=== PATIENT | male | born 1985 | race Caucasian/White ===

== ENCOUNTER 2019-09-01 10:34 | Inpatient (IN) | payer SELFPAY ==
[2019-09-01] MEDS ORDERED: Ondansetron 4 MG/2 ML SDV IVPUSH ONE (11:07)
--- NOTE | 2019-09-01 11:12 | EDM.PDOC ---
ED HPI GENERAL MEDICAL PROBLEM - General Chief Complaint: Abdominal Pain Stated Complaint: ABDOMINAL PAIN Time Seen by Provider: 09/01/19 11:00 Source of Information: Reports: Patient History Limitations: Reports: No Limitations - History of Present Illness INITIAL COMMENTS - FREE TEXT/NARRATIVE: Patient is a 33-year-old male who was sent from the [facility] for a possible bowel obstruction. He presents with complaints of intermittent abdominal pain, distention, decreased appetite, nausea, and diarrhea. Symptoms started 3 days ago when he came down with what he feels a viral gastroenteritis that he and the other members of his house had. He did have nausea, vomiting and diarrhea at this time. He states that since that time he has continued to have watery diarrhea. His abdomen has been becoming progressively more distended.. He has not been vomiting since 3 days ago however his appetite is drastically decreased. He is still passing flatus. He denies any chronic health problems or abdominal surgeries in the past. lab work sent from [facility] includes a CBC and a CMP. His WBCs were mildly elevated at 11.9. The lab work was otherwise unremarkable. [facility] did also push abdominal x-ray images which did have positive air-fluid levels. Abdomen Pain Score (Numeric/FACES): 7 - Related Data Allergies Allergy/AdvReac Type Severity Reaction Status Date / Time Penicillins Allergy Cannot Verified 09/01/19 10:44 Remember Home Meds: Home Meds . [No Known Home Meds] 09/01/19 [History] Past Medical History - Past Surgical History HEENT Surgical History: Reports: Adenoidectomy, Tonsillectomy Social & Family History - Tobacco Use Smoking Status *Q: Never Smoker Second Hand Smoke Exposure: No - Caffeine Use Caffeine Use: Reports: Soda - Recreational Drug Use Recreational Drug Use: No ED ROS GENERAL - Review of Systems Review Of Systems: See Below Constitutional: Reports: Decreased Appetite. Denies: Fever, Chills HEENT: Reports: No Symptoms Respiratory: Reports: No Symptoms Cardiovascular: Reports: No Symptoms Endocrine: Reports: No Symptoms GI/Abdominal: Reports: Abdominal Pain (intermittent, crampy), Diarrhea, Decreased Appetite, Distension, Nausea. Denies: Black Stool : Reports: No Symptoms Musculoskeletal: Reports: No Symptoms Skin: Reports: No Symptoms Neurological: Reports: No Symptoms Psychiatric: Reports: No Symptoms Hematologic/Lymphatic: Reports: No Symptoms Immunologic: Reports: No Symptoms ED EXAM, GI/ABD - Physical Exam Exam: See Below Exam Limited By: Altered Mental Status General Appearance: Alert, WD/WN, No Apparent Distress Respiratory/Chest: No Respiratory Distress, Lungs Clear, Normal Breath Sounds, No Accessory Muscle Use, Chest Non-Tender Cardiovascular: Normal Peripheral Pulses, Regular Rate, Rhythm, No Edema, No Murmur GI/Abdominal Exam: Non-Tender, No Mass, Distended, Abnormal Bowel Sounds (high, pitched hyperactive to the LLQ and LUQ. Hypoactive to the RUQ and RLQ.) Neurological: Alert, Oriented, Normal Cognition Psychiatric: Normal Affect, Normal Mood Skin Exam: Warm, Dry, Intact, Normal Color, No Rash Course - Vital Signs Last Recorded V/S: Last Vital Signs Temp 98.6 F 09/01/19 10:45 Pulse 90 09/01/19 10:45 Resp 13 09/01/19 10:45 BP 153/100 H 09/01/19 10:45 Pulse Ox 98 09/01/19 10:45 - Orders/Labs/Meds Orders: Active Orders 24 hr Category Date Time Status Sodium Chloride 0.9% [Normal Saline] 1,000 ml Med 09/01/19 11:15 Active IV ASDIRECTED Sodium Chloride 0.9% [Normal Saline] 1,000 ml Med 09/01/19 14:00 Active IV ASDIRECTED Sodium Chloride 0.9% [Saline Flush] Med 09/01/19 11:15 Active 10 ml FLUSH ONETIME PRN Medication Orders Sodium Chloride (Normal Saline) 1,000 mls @ 999 mls/hr IV ASDIRECTED ANA Last Admin: 09/01/19 11:18 Dose: 999 mls/hr Sodium Chloride (Normal Saline) 1,000 mls @ 150 mls/hr IV ASDIRECTED ANA Last Admin: 09/01/19 14:00 Dose: 150 mls/hr Sodium Chloride (Saline Flush) 10 ml FLUSH ONETIME PRN PRN Reason: IV FLUSH Last Admin: 09/01/19 12:30 Dose: 10 ml Admin: 09/01/19 11:21 Dose: 10 ml Meds: Medications Generic Name Dose Route Start Last Admin Trade Name Freq PRN Reason Stop Dose Admin Sodium Chloride 1,000 mls @ 999 mls/hr 09/01/19 11:15 09/01/19 11:18 Normal Saline IV 999 mls/hr ASDIRECTED ANA Administration Sodium Chloride 1,000 mls @ 150 mls/hr 09/01/19 14:00 09/01/19 14:00 Normal Saline IV 150 mls/hr ASDIRECTED ANA Administration Sodium Chloride 10 ml 09/01/19 11:15 09/01/19 12:30 Saline Flush FLUSH 10 ml ONETIME PRN Administration IV FLUSH Discontinued Medications Generic Name Dose Route Start Last Admin Trade Name Rebekah PRN Reason Stop Dose Admin Diatrizoate Meglum/Diatrizoate Sod 120 ml 09/01/19 11:15 09/01/19 12:30 Gastrografin 37% PO 09/01/19 11:16 90 ml ONETIME ONE Administration Iopamidol 100 ml 09/01/19 11:15 09/01/19 12:30 Isovue-300 (61%) IVPUSH 09/01/19 11:16 100 ml ONETIME ONE Administration Ondansetron HCl 4 mg 09/01/19 11:07 09/01/19 11:14 Zofran IVPUSH 09/01/19 11:08 4 mg ONETIME ONE Administration - Re-Assessments/Exams Free Text/Narrative Re-Assessment/Exam: on exam patient's abdomen is quite distended and firm. He does have high- pitched hyperactive bowel sounds in the right upper and lower quadrants, as well as hypoactive bowel sounds in the left upper and lower quadrants. He has still been passing watery stools for the last couple days and is passing flatus today. I have ordered an abdomen CT with contrast, as well as Zofran IV and a 1 L bolus of normal saline. He denies any pain at this time. He states that it "comes and goes intermittently. Suspicion is high for a small bowel obstruction versus ileus. 09/01/19 [id number] Report of the abdomen pelvis CT is as follows: 1. Dilated small bowel loops containing air and fluid. Distal ileal loops are normal in size. Findings are suspicious for a small bowel obstruction. Etiology is not seen on this exam. 2. Fatty infiltration within the liver. 3. Slightly prominent fluid and air within the right colon and transverse colon possibly due to mild colonic ileus. I did attempt to call the on-call surgeon Dr. Regalado, however there was no answer and a voicemail was left. Patient was updated on these results and a possibility of hospital admission. He continued to deny the need for any pain medications. He is currently resting comfortably. 09/01/19 14:24 I was able to get a hold of Dr. Regalado at [facility]. Based on the report given she does not feel there is an emergent situation requiring surgery at this time. She requests that we have the hospitalist admit and consult her if needed. I did call and talk to Dr. Rodgers. He did except the patient for admission as an inpatient for small bowel obstruction. He requests that the IV fluids be continued and that he be maintained nothing by mouth. Departure - Departure Time of Disposition: 14:25 Disposition: Admitted As Inpatient 65 Condition: Fair Clinical Impression: Small bowel obstruction - Discharge Information *PRESCRIPTION DRUG MONITORING PROGRAM REVIEWED*: No *COPY OF PRESCRIPTION DRUG MONITORING REPORT IN PATIENT [facility]: No - My Orders Last 24 Hours: My Active Orders 09/01/19 11:15 Sodium Chloride 0.9% [Normal Saline] 1,000 ml IV ASDIRECTED Sodium Chloride 0.9% [Saline Flush] 10 ml FLUSH ONETIME PRN 09/01/19 14:00 Sodium Chloride 0.9% [Normal Saline] 1,000 ml IV ASDIRECTED - Assessment/Plan Last 24 Hours: My Active Orders 09/01/19 11:15 Sodium Chloride 0.9% [Normal Saline] 1,000 ml IV ASDIRECTED Sodium Chloride 0.9% [Saline Flush] 10 ml FLUSH ONETIME PRN 09/01/19 14:00 Sodium Chloride 0.9% [Normal Saline] 1,000 ml IV ASDIRECTED
[2019-09-01] MEDS ORDERED: Sodium Chloride 0.9% 1,000 ML IV SCH (11:15)
[2019-09-01] MEDS ORDERED: Iopamidol 612 MG/ML 100 ML Bottle IVPUSH ONE (11:15)
[2019-09-01] MEDS ORDERED: Diatrizoate Meglumine/Diatrizoate Sodium 37% 120 ML Bottle PO ONE (11:15)
[2019-09-01] MEDS: Sodium Chloride 0.9% 10 ML Syringe FLUSH PRN ×2 (11:21→12:30)
--- NOTE | 2019-09-01 13:57 | CT ---
CT abdomen and pelvis Technique: Multiple axial sections were obtained from above the domes of the diaphragm inferiorly to the pubic symphysis. Intravenous contrast and oral contrast has been given. Comparison: Previous CT abdomen and pelvis study of 06/15/12. Findings: Dilated air and fluid-filled small bowel are noted. Distal small bowel ileum shows no dilatation. There is also mild gaseous dilatation of a portion of the transverse and right colon which is likely due to slight ileus. Appendix is seen and normal in size. Visualized lung bases show nothing acute. Fatty infiltration is noted within the liver. No focal abnormality is seen. Spleen appears within normal limits. Adrenal glands show no nodule. Kidneys show symmetric contrast enhancement without hydronephrosis or mass. Pancreas shows no discrete abnormality. Aorta shows no aneurysm. No retroperitoneal adenopathy or mesenteric abnormalities are seen. No pelvic mass or adenopathy is seen. No free fluid or inflammatory change is appreciated. Impression: 1. Dilated small bowel loops containing air and fluid. Distal ileal loops are normal in size. Findings are suspicious for small bowel obstruction. Etiology is not seen on this exam. 2. Fatty infiltration within the liver. 3. Slightly prominent fluid and air within the right colon and transverse colon possibly due to mild colonic ileus. Diagnostic code #3
[2019-09-01] MEDS: Sodium Chloride 0.9% 1,000 ML IV SCH ×2 (14:00→21:45)
--- NOTE | 2019-09-01 16:09 | PCM.HP.2 ---
H&P History of Present Illness - General Date of Service: 09/01/19 Admit Problem/Dx: Admission Diagnosis/Problem Admission Diagnosis/Problem Small bowel obstruction - History of Present Illness Initial Comments - Free Text/Narative: 33-year-old male who presents to the emergency room with 3-day history of normal pain. 3 days prior to admission patient states he woke up vomiting and had diarrhea. This was a similar illness that went through the family. Yesterday as he was driving in his truck he noticed that the bumps in the road hurt worse than normal. On day of admission pain became more severe and he presented to the emergency room. Patient has had multiple bowel movements including one when he was admitted to the medical surgical floor. Patient denies any blood, hematochezia, melena, hematemesis. Complains of liquid stools and flatus. Also complains of bloating. In the emergency room a CT scan was performed. Impression: 1. Dilated small bowel loops containing air and fluid. Distal ileal loops are normal in size. Findings are suspicious for small bowel obstruction. Etiology is not seen on this exam. 2. Fatty infiltration within the liver. 3. Slightly prominent fluid and air within the right colon and transverse colon possibly due to mild colonic ileus. Patient was given IV fluids, made n.p.o., and transferred to the medical surgical floor. Abdomen Pain Score (Numeric/FACES): 7 - Related Data Allergies/Adverse Reactions: Allergies Allergy/AdvReac Type Severity Reaction Status Date / Time Penicillins Allergy Cannot Verified 09/01/19 15:45 Remember Home Medications: Home Meds . [No Known Home Meds] 09/01/19 [History] Past Medical History Gastrointestinal History: Reports: Other (See Below) Other Gastrointestinal History: bacterial infection years ago Neurological History: Reports: Head Trauma Other Neuro History: "split head open when 6 from riding a horse" Endocrine/Metabolic History: Reports: Obesity/BMI 30+ - Past Surgical History HEENT Surgical History: Reports: Adenoidectomy, Tonsillectomy Musculoskeletal Surgical History: Reports: Other (See Below) Social & Family History - Tobacco Use Smoking Status *Q: Never Smoker Second Hand Smoke Exposure: No - Caffeine Use Caffeine Use: Reports: Soda - Recreational Drug Use Recreational Drug Use: No H&P Review of Systems - Review of Systems: Review Of Systems: Comprehensive ROS is negative, except as noted in HPI. Exam - Exam Exam: See Below - Vital Signs Vital Signs: Last Vital Signs Temp 98.6 F 09/01/19 10:45 Pulse 90 09/01/19 10:45 Resp 13 09/01/19 10:45 BP 153/100 H 09/01/19 10:45 Pulse Ox 98 09/01/19 10:45 Weight: 262 lb 14.4 oz - Exam General: Alert, Oriented, 4 HEENT: Conjunctiva Clear, EACs Clear, EOMI, Hearing Intact, Mucosa Moist & [place] Neck: Supple, Trachea Midline, 2 Lungs: Clear to Auscultation, Normal Respiratory Effort Cardiovascular: Regular Rate, Regular Rhythm GI/Abdominal Exam: Normal Bowel Sounds, Soft, Tender (Diffusely without guarding or rebound) Skin: Warm, Dry, Intact Neurological: Cranial Nerves Intact Neuro Extensive - Mental Status: Alert, Oriented x3, Normal Mood/Affect, Normal Cognition Neuro Extensive - Motor, Sensory, Reflexes: CN II-XII Intact, Normal Gait Psychiatric: Alert, Normal Affect, Normal Mood - Patient Data Result Diagrams: 09/02/19 05:17 09/02/19 05:17 Problem List Initiated/Reviewed/Updated: Yes Orders Last 24hrs: Active Orders 24 hr Category Date Time Status Patient Status [ADT] Routine ADT 09/01/19 14:26 Active Sodium Chloride 0.9% [Normal Saline] 1,000 ml Med 09/01/19 11:15 Active IV ASDIRECTED Sodium Chloride 0.9% [Normal Saline] 1,000 ml Med 09/01/19 14:00 Active IV ASDIRECTED Sodium Chloride 0.9% [Saline Flush] Med 09/01/19 11:15 Active 10 ml FLUSH ONETIME PRN Medication Orders Sodium Chloride (Normal Saline) 1,000 mls @ 999 mls/hr IV ASDIRECTED ANA Last Admin: 09/01/19 11:18 Dose: 999 mls/hr Sodium Chloride (Normal Saline) 1,000 mls @ 150 mls/hr IV ASDIRECTED ANA Last Admin: 09/01/19 14:00 Dose: 150 mls/hr Sodium Chloride (Saline Flush) 10 ml FLUSH ONETIME PRN PRN Reason: IV FLUSH Last Admin: 09/01/19 12:30 Dose: 10 ml Admin: 09/01/19 11:21 Dose: 10 ml Assessment/Plan Comment:: Assessment * Small bowel obstruction versus gastroenteritis CT scan was performed. Impression: 1. Dilated small bowel loops containing air and fluid. Distal ileal loops are normal in size. Findings are suspicious for small bowel obstruction. Etiology is not seen on this exam. 2. Fatty infiltration within the liver. 3. Slightly prominent fluid and air within the right colon and transverse colon possibly due to mild colonic ileus. Plan * Admit to medical floor * IV fluids * N.p.o. * Consult surgery * VTE prophylaxis with SCDs * CODE STATUS full code * Length of stay 1 to 2 days - Mortality Measure Prognosis:: Good
--- NOTE | 2019-09-01 22:41 | PCM.CONS ---
H&P History of Present Illness - General Date of Service: 09/01/19 Admit Problem/Dx: Admission Diagnosis/Problem Admission Diagnosis/Problem Small bowel obstruction Source of Information: Patient, Provider, Significant Other History Limitations: Reports: No Limitations - History of Present Illness Initial Comments - Free Text/Narative: The patient is a 33 y/o male who presented with abdominal pain and tightness. His symptoms began 3 days ago with nausea, vomiting and diarrhea. He has had mild to moderate abdominal pain. He reports significant bloating. Today he noted significant pain while driving and came in to be evaluated. He has continued liquid stool and flatus. He denies any melena or hematochezia. No hematemesis. He had a CT abdomen/pelvis that showed dilated loops of bowel. Abdomen Pain Score (Numeric/FACES): 7 - Related Data Allergies/Adverse Reactions: Allergies Allergy/AdvReac Type Severity Reaction Status Date / Time Penicillins Allergy Cannot Verified 09/01/19 15:45 Remember Home Medications: Home Meds . [No Known Home Meds] 09/01/19 [History] Past Medical History Gastrointestinal History: Reports: Other (See Below) Other Gastrointestinal History: bacterial infection years ago Neurological History: Reports: Head Trauma Other Neuro History: "split head open when 6 from riding a horse" Endocrine/Metabolic History: Reports: Obesity/BMI 30+ - Past Surgical History HEENT Surgical History: Reports: Adenoidectomy, Tonsillectomy Musculoskeletal Surgical History: Reports: Other (See Below) Social & Family History - Family History GI: Reports: None - Tobacco Use Smoking Status *Q: Never Smoker Second Hand Smoke Exposure: No - Caffeine Use Caffeine Use: Reports: Soda - Recreational Drug Use Recreational Drug Use: No H&P Review of Systems - Review of Systems: Review Of Systems: See Below General: Reports: No Symptoms HEENT: Reports: No Symptoms Pulmonary: Reports: No Symptoms Cardiovascular: Reports: No Symptoms Gastrointestinal: Reports: Abdominal Pain, Diarrhea, Distension Genitourinary: Reports: No Symptoms Musculoskeletal: Reports: No Symptoms Skin: Reports: No Symptoms Exam - Exam Exam: See Below - Vital Signs Vital Signs: Last Vital Signs Temp 37.0 C 09/01/19 10:45 Pulse 90 09/01/19 10:45 Resp 13 09/01/19 10:45 BP 153/100 H 09/01/19 10:45 Pulse Ox 98 09/01/19 10:45 Weight: 119.249 kg - Exam Quality Assessment: No: Supplemental Oxygen General: Alert, Oriented HEENT: Conjunctiva Clear, EOMI Neck: Supple, Trachea Midline, 2 Lungs: Clear to Auscultation, Normal Respiratory Effort Cardiovascular: Regular Rate, Regular Rhythm GI/Abdominal Exam: Normal Bowel Sounds, Soft, Distended, Tender (mild in left hemiabdomen) Extremities: Normal Inspection Skin: Warm, Dry, Intact Neurological: Cranial Nerves Intact Neuro Extensive - Mental Status: Normal Mood/Affect Consult PN Assessment/Plan (1) Gastroenteritis SNOMED Code(s): 58632453 Code(s): K52.9 - NONINFECTIVE GASTROENTERITIS AND COLITIS, UNSPECIFIED Current Visit: Yes Problem List Initiated/Reviewed/Updated: Yes Plan: 33 y/ o male with clinical picture consistent with gastroenteritis - may trial clear liquids - IVF resuscitation - NGT if pt has absence of bowel function develop No surgical intervention needed at this time. Please call with any questions or concerns. Marina Regalado MD General surgery
[2019-09-02] MEDS: Sodium Chloride 0.9% 1,000 ML IV SCH (04:14)
[2019-09-02] MEDS ORDERED: Sodium Chloride 0.9% 10 ML Syringe FLUSH PRN (10:35)
--- NOTE | 2019-09-02 13:05 | PCM.DCSUM1 ---
Discharge Summary - Hospital Course HPI Initial Comments: 33-year-old male who presents to the emergency room with 3-day history of normal pain. 3 days prior to admission patient states he woke up vomiting and had diarrhea. This was a similar illness that went through the family. Yesterday as he was driving in his truck he noticed that the bumps in the road hurt worse than normal. On day of admission pain became more severe and he presented to the emergency room. Patient has had multiple bowel movements including one when he was admitted to the medical surgical floor. Patient denies any blood, hematochezia, melena, hematemesis. Complains of liquid stools and flatus. Also complains of bloating. In the emergency room a CT scan was performed. Impression: 1. Dilated small bowel loops containing air and fluid. Distal ileal loops are normal in size. Findings are suspicious for small bowel obstruction. Etiology is not seen on this exam. 2. Fatty infiltration within the liver. 3. Slightly prominent fluid and air within the right colon and transverse colon possibly due to mild colonic ileus. Patient was given IV fluids, made n.p.o., and transferred to the medical surgical floor. Diagnosis: Stroke: No - Discharge Data Discharge Date: 09/02/19 Discharge Disposition: Home, Self-Care 01 Condition: Good - Referral to Home Health Primary Care Physician: PCP None - Patient Summary/Data Consults: Consultations 09/01/19 16:09 Consult to Physician [CONS] Routine Hospital Course: Patient was admitted overnight for IV fluids and bowel rest. He tolerated a clear liquid diet for breakfast and full liquid diet at lunch. Patient no longer has pain, nausea, or diarrhea. - Patient Instructions Diet: GI Soft/Low Residue/Low Fiber Driving: May Drive Today Showering/Bathing: May Shower Other/Special Instructions: Follow-up with primary care provider in 1 to 2 weeks. - Discharge Plan *PRESCRIPTION DRUG MONITORING PROGRAM REVIEWED*: No *COPY OF PRESCRIPTION DRUG MONITORING REPORT IN PATIENT [facility]SIE: No Home Medications: Home Meds Sodium Chloride 0.9% [Saline Flush] 10 ml FLUSH ASDIRECTED PRN syringe [Rx] Sodium Chloride 0.9% [Saline Flush] 10 ml FLUSH ONETIME PRN syringe 09/02/19 [ Rx] Oxygen Therapy Mode: Room Air Forms: ED Department Discharge Referrals: PCP,None [Primary Care Provider] - - Discharge Summary/Plan Comment DC Time >30 min.: Yes Discharge Summary/Plan Comment: Patient be discharged home to advance diet as tolerated. He no longer has pain , nausea, or vomiting. Follow-up with primary care provider in 1 to 2 weeks. - General Info Date of Service: 09/02/19 Admission Dx/Problem (Free Text: Admission Diagnosis/Problem Admission Diagnosis/Problem Small bowel obstruction Subjective Update: Patient did well overnight. Tolerated breakfast and lunch. Functional Status: Reports: Pain Controlled - Review of Systems General: Reports: No Symptoms HEENT: Reports: No Symptoms Pulmonary: Reports: No Symptoms Cardiovascular: Reports: No Symptoms Gastrointestinal: Reports: No Symptoms - Patient Data Vitals - Most Recent: Last Vital Signs Temp 98.6 F 09/02/19 11:49 Pulse 81 09/02/19 11:49 Resp 16 09/02/19 11:49 BP 141/88 H 09/02/19 11:49 Pulse Ox 95 09/02/19 11:49 Weight - Most Recent: 262 lb 14.4 oz I&O - Last 24 hours: Intake & Output 09/01/19 09/02/19 09/02/19 22:59 06:59 14:59 Intake Total 150 1784 320 Balance 150 1784 320 Lab Results - Last 24 hrs: Laboratory Results - last 24 hr 09/02/19 09/02/19 Range/Units 05:17 05:17 WBC 7.02 (4.23-9.07) K/mm3 RBC 4.75 (4.63-6.08) M/mm3 Hgb 13.8 (13.7-17.5) gm/dl Hct 40.0 L (40.1-51.0) % MCV 84.2 (79.0-92.2) fl MCH 29.1 (25.7-32.2) pg MCHC 34.5 (32.2-35.5) g/dl RDW Std Deviation 39.3 (35.1-43.9) fL Plt Count 211 (163-337) K/mm3 MPV 10.3 (9.4-12.3) fl Neut % (Auto) 56.5 (34.0-67.9) % Lymph % (Auto) 26.1 (21.8-53.1) % Mitchell % (Auto) 13.5 H (5.3-12.2) % Eos % (Auto) 3.0 (0.8-7.0) Baso % (Auto) 0.6 (0.1-1.2) % Neut # (Auto) 3.97 (1.78-5.38) K/mm3 Lymph # (Auto) 1.83 (1.32-3.57) K/mm3 Mitchell # (Auto) 0.95 H (0.30-0.82) K/mm3 Eos # (Auto) 0.21 (0.04-0.54) K/mm3 Baso # (Auto) 0.04 (0.01-0.08) K/mm3 Manual Slide Review Not Reportable Sodium 139 (136-145) mEq/L Potassium 3.8 (3.5-5.1) mEq/L Chloride 105 (98-107) mEq/L Carbon Dioxide 24 (21-32) mEq/L Anion Gap 13.8 (5-15) BUN 10 (7-18) mg/dL Creatinine 1.0 (0.7-1.3) mg/dL Est Cr Clr Drug Dosing 114.24 mL/min Estimated GFR (MDRD) > 60 (>60) mL/min BUN/Creatinine Ratio 10.0 L (14-18) Glucose 70 L (74-106) mg/dL Calcium 8.1 L (8.5-10.1) mg/dL Magnesium 1.8 (1.8-2.4) mg/dl Total Bilirubin 0.8 (0.2-1.0) mg/dL AST 27 (15-37) U/L ALT 46 (16-63) U/L Alkaline Phosphatase 50 (46-116) U/L Total Protein 6.6 (6.4-8.2) g/dl Albumin 3.1 L (3.4-5.0) g/dl Globulin 3.5 gm/dL Albumin/Globulin Ratio 0.9 L (1-2) Med Orders - Current: Current Medications Sodium Chloride (Saline Flush) 10 ml FLUSH ONETIME PRN PRN Reason: IV FLUSH Last Admin: 09/01/19 12:30 Dose: 10 ml Sodium Chloride (Saline Flush) 10 ml FLUSH ASDIRECTED PRN PRN Reason: Keep Vein Open Discontinued Medications Diatrizoate Meglum/Diatrizoate Sod (Gastrografin 37%) 120 ml PO ONETIME ONE Stop: 09/01/19 11:16 Last Admin: 09/01/19 12:30 Dose: 90 ml Sodium Chloride (Normal Saline) 1,000 mls @ 999 mls/hr IV ASDIRECTED [facility] Last Infusion: 09/01/19 12:19 Dose: Infused Sodium Chloride (Normal Saline) 1,000 mls @ 150 mls/hr IV ASDIRECTED [facility] Last Admin: 09/02/19 04:14 Dose: 150 mls/hr Iopamidol (Isovue-300 (61%)) 100 ml IVPUSH ONETIME ONE Stop: 09/01/19 11:16 Last Admin: 09/01/19 12:30 Dose: 100 ml Ondansetron HCl (Zofran) 4 mg IVPUSH ONETIME ONE Stop: 09/01/19 11:08 Last Admin: 09/01/19 11:14 Dose: 4 mg - Exam General: Reports: Alert, Oriented HEENT: Reports: Pupils Equal Neck: Reports: Supple Lungs: Reports: Clear to Auscultation, Normal Respiratory Effort Cardiovascular: Reports: Regular Rate, Regular Rhythm GI/Abdominal Exam: Normal Bowel Sounds, Soft, Non-Tender, No Organomegaly, No Distention, No Abnormal Bruit, No Mass, Pelvis Stable Skin: Reports: Warm, Dry, Intact Psy/Mental Status: Reports: Alert, Normal Affect, Normal Mood
== END 2019-09-02 13:47 | disposition home or self-care (01) | DRG 390 ==
LOC: JD.ED 10:34 → JD.MS 14:26
PROVIDERS: ADMIT Family Medicine; ATTEND Family Medicine
DX: K56.609 Unspecified intestinal obstruction, unspecified as to partial versus complete obstruction (principal); K52.9 Noninfective gastroenteritis and colitis, unspecified; K56.7 Ileus, unspecified; K76.0 Fatty (change of) liver, not elsewhere classified; E66.9 Obesity, unspecified; Z88.0 Allergy status to penicillin; Z90.89 Acquired absence of other organs; Z68.35 Body mass index [BMI] 35.0-35.9, adult
CPT/HCPCS: 36415; 74177; 74177-26; 80053; 83735; 85025; 96361; 96374; 99221; 99238; 99285; 99285-25; J2405; J7030; Q9963; Q9967